=== PATIENT | female | born 1945 | race Caucasian/White ===

== ENCOUNTER 2023-11-10 05:49 | Day surgery (SDC) | payer MEDICARE, OTHER, SELFPAY ==
[2023-11-10] VITALS (9 sets, daily range): BP systolic 123–159; BP diastolic 55–80; PULSE 61–93; RESP 14–18; TEMP 36.1–36.6; O2SAT 92–97; BMI 22.8
--- NOTE | 2023-11-10 | FORE_PTH ---
PATIENT: CHAVO FREEMAN LOC: [facility] [place] U#:[id number] AGE/SX: 78/F ROOM: RE11/10/[address]: Dr. Janki Soliman MD : 1945 BED: DIS: 11/10/2023 SPEC #: [id number] RECD: 11/10/23 12:46 STATUS: AHILEE MALENA #: [id number] ADAIR: 11/10/23 00:[address]: Janki Soliman DEPT: SURGICAL PATHOLOGY RECD BY: Maicol Aguilera ENTERED: 11/10/23 12:46 SP TYPE: FOREIGN B OTHR DR: Dr. Jeny Hutchinson, DO Tissues: FOREIGN BODY Procedures: Surgery Specimen Level I HEADER OPERATION: Left breast silicone implant removal and capsulectomy PRE-OP DIAGNOSIS: Ruptured left breast implant, breast implant capsular contracture TISSUE SUBMITTED: Left breast implant capsule with tissue MICROSCOPIC DIAGNOSIS Left breast implant capsule, excision: Fibrosis, mild chronic inflammation and benign histiocytic reaction to non-polarizable material. /mr 11/13/23 MICROSCOPIC DESCRIPTION Slides are reviewed. GROSS DESCRIPTION Received in fixative is one container labeled with the patient's name and designated Left breast implant capsule and tissue. The specimen consists of a previously ruptured silicone implant measuring 14.0 x 10.0 x 2.5cm. Multiple pieces of soft tissue are noted measuring in aggregate 10.0 x 10.0x 0.2cm. No inscription are noted on the implant. Utility Lineman sections from soft tissue are submitted in one cassette. / 11/10/23 TC:3 CPT: 13252
[2023-11-10] MEDS: Lactated Ringers 1,000 ML 15 ML IV (06:44)
--- NOTE | 2023-11-10 07:24 | PCM.HP.BLA ---
History and Physical Date of Admission: 11/10/23 The patient is examined and there are no changes to the H&P dated 10/13/23. Pt with ruptured left breast silicone implant. She presents for removal ruptured silicone implant and capsulectomy. Informed consent was obtained. Assessment & Plan Assessment/Plan (1) Ruptured left breast implant: (2) Breast implant capsular contracture: PLAN: Plan For removal left silicone implant and capsulectomy.
[2023-11-10] MEDS: Clindamycin 900 MG/50 ML BAG 75 MG IV (07:28)
[2023-11-10] MEDS: Gentamicin 80 MG/2 ML Vial (07:58)
[2023-11-10] MEDS: Bupivacaine 0.25% 30 ML Vial (09:53)
--- NOTE | 2023-11-10 10:07 | DCINST_ITS ---
Discharge Instructions Dressing / Incision Additional Dressing/Incision Instructions:: Keep your back elevated (recliner position). Empty the ROBYN drain 2-3 times a day and record the quantity. Bring this spreadsheet back to your appointments with Dr. Soliman. Follow Up Care Please Follow Up With: Janki Soliman MD When: In 1 week Test Results: Test results from this visit will be discussed in further detail at your follow- up appointment, if applicable. Discharge Plan Admission Attending Provider: Janki Soliman Primary Care Provider: Jeny Hutchinson Instructions Additional Instructions / Restrictions: Provide patient with and incentive spirometer prior to discharge. Teach patient and to empty and record ROBYN drainage. Discharge Orders/Prescriptions Prescriptions: No Action acetaminophen [Tylenol] 325 mg capsule 325 mg PO ONCE PRN (Reason: pain) albuterol sulfate 90 mcg/actuation HFA aerosol inhaler 2 puff inhalation Q6H PRN (Reason: shortness of breath or wheezing) ipratropium bromide 21 mcg (0.03 %) spray,non-aerosol 2 spray intranasal BID Rx Instructions: administer into each nostril calcium carbonate [Calcium 600] 600 mg calcium (1,500 mg) tablet 2,000 mg PO DAILY sulfamethoxazole-trimethoprim [Bactrim DS] 800-160 mg tablet 1 tab PO BID Qty: 14 0RF tramadol 50 mg tablet 50 mg PO Q8H PRN (Reason: pain) Qty: 7 0RF Referrals / Follow Up: Jeny Hutchinson DO [Primary Care Provider] - Disposition Disposition (needs filled in before D/C Order can be placed): Home, Self Care
--- NOTE | 2023-11-10 10:15 | PCM.OPRPT ---
Problems Associated Problem List Diagnoses (1) Breast pain, left: (2) Breast implant capsular contracture: (3) Ruptured left breast implant: Report of Operation Date of Procedure: 11/10/23 Pre-Operative Diagnosis: Imaging proven left breast implant rupture; left breast capsular contraction; history of left breast reconstruction following mastectomy for cancer Post-Operative Diagnosis: Same Surgery/Procedure Performed:: Left breast silicone implant removal and capsulectomy Surgeon: Janki Soliman furniture repair technician: JULIANE LUISwebbing supervisor Type of Anesthesia: General Specimen's removed: Ruptured silicone implant and capsule Drains: ROBYN drain Estimated Blood Loss (mL): 20 cc Description of Procedure: The patient presents for removal of a ruptured silicone implant that was placed in approximately 1980 for reconstruction following mastectomy for cancer. She complains of pain and had an imaging study of the chest which demonstrated the rupture. She presents for removal of the silicone implant and capsulectomy without replacement per her request. The procedure been thoroughly reviewed with her and her . Adequate time was given to answer all questions. Informed consent was obtained. The patient is brought to the operating room and placed under general anesthesia in the supine position. Care is taken to pad all pressure points, insert a Erazo catheter, a warming blanket, and sequential compression stockings. The chest is prepped and draped in the usual sterile fashion. We initially began with excising an adherent portion of the previous scar. This is taken down through the subcutaneous tissue until the pectoralis major muscle is encountered. Dissection then continues in a deep subcutaneous plane discussed preserve the muscle and identify the capsule around the ruptured implant. The capsule was identified and careful dissection over the dome of the implant is performed leaving the capsule intact. When the anterior surface of the capsule was completely exposed, we began taking the capsule off the chest wall. The capsule is firmly adherent to the bone and intercostal muscle fascia and therefore portion of the capsule is left intact in this area. The ruptured silicone implant and removed capsule is passed off the operative field to be sent to pathology. The wound is irrigated with antibiotic solution and gauze used to wipe out any grossly present silicone. Meticulous hemostasis is then performed. Gretchen is sprayed within the capsule to facilitate further hemostasis. A ROBYN drain is laid in the inferior aspect of the pocket and brought out through the lateral aspect of the incision. This is anchored in place with a nylon suture. The incision is then closed in layers I initially tacked in the incision together with [id number] Vicryl sutures. Further closure is accomplished with a 3 layer closure using 3-0 STRATAFIX suture. 1/4% plain Marcaine is injected within the pocket as well as in the skin around the incision. Xeroform gauze is placed on the incision along with fluff gauze and she is placed in a surgery bra. She tolerated the procedure well and was taken to the recovery area in an awakening in stable condition. Needle and sponge counts are correct. Complications None Admit VTE Documentation VTE Mechan Device Prophylaxis: SCD's
== END 2023-11-10 13:23 | disposition home or self-care (01) ==
LOC: SDC 05:49 → AC 05:50
PROVIDERS: PCP Internal Medicine; Referring Provider Plastic Surgery; Visit Provider Plastic Surgery
PROC: (CPT 19371; principal; 2023-11-10 07:15)
DX: T85.44XA Capsular contracture of breast implant, initial encounter (principal); J44.9 Chronic obstructive pulmonary disease, unspecified; N64.4 Mastodynia; Z79.51 Long term (current) use of inhaled steroids; X58.XXXA Exposure to other specified factors, initial encounter; Z86.73 Personal history of transient ischemic attack (TIA), and cerebral infarction without residual deficits
CPT/HCPCS: 19370; 00402; 88300; J7120; C1729; J2405

== ENCOUNTER 2024-04-19 05:41 | Day surgery (SDC) | payer MEDICARE, OTHER, SELFPAY ==
[2024-04-19] VITALS (10 sets, daily range): BP systolic 128–171; BP diastolic 59–98; PULSE 60–81; RESP 16–18; TEMP 35.9–36.3; O2SAT 93–99; BMI 23.2
[2024-04-19] MEDS: Lactated Ringers 1,000 ML 15 ML IV (06:25)
--- NOTE | 2024-04-19 06:38 | PRE.ANES_ITS ---
ASA Classification* ASA Classification ASA Classification: 2 Assessment & Plan Anesthesia* Anesthesia Assessment Anesthesia Assessment: Discussed sedation and/or anesthesia options, risks, benefits, and alternatives with patient/parents/legal guardian/POA. Questions invited. The patient/parents/legal guardian/POA seems to understand and agrees to proceed with anesthesia plan. Reviewed the physical assessment, medical history, allergy history and patient home medications list prior to surgery/procedure/anesthetic and documented any changes. Performed airway and anesthesia risk assessments. Anesthesia Type Anesthesia Type: General Anesthesia Focused Assessment* Temperature: 97.2 F Pulse Rate: 60 Blood Pressure: 171/75 Respiratory Rate: 18 Pulse Ox: 97 Airway Assessment Mouth opens: >3 cm Mallampati Score: II Focused Labs Anesthesia Preop lab: CBC CHEMISTRY COAG Pre-Assessment Diagnosis/Proposed Procedure Planned Operative Procedure(s): (B) Bilateral upper blepharoplasty Anesthesia History Anesthesia History - forging machine hand: Anesthesia History - forging machine hand Hx Hospitalization Yes: [facility] FOR BAD FALL 04/02/24 11:20 Any Problems With Anesthesia No: STATES SLOW TO WAKE UP 04/02/24 11:20 Cholinesterase deficiency No 04/02/24 11:20 You/Your Family Experience No 04/02/24 11:20 fever (hyperthermia) with Relationship Recent Exposure to Contagious No 04/19/24 06:14 Disease Does patient have nerve No 04/02/24 11:20 stimulator Patient instructed to have device shut off --Does patient have Pacemaker No 04/19/24 06:14 or ICD? When Was Last Pacemaker Check QUESTION #4 FULL TEXT: You/Your Family Experience fever (hyperthermia) with Anesthesia Last Oral Intake Last Oral intake: Last Oral Intake NPO since 04:30 04/19/24 06:14 Meds taken in AM with sips of Yes 04/19/24 06:14 water? Meds patient instructed to losartan 04/19/24 06:14 take am of surgery PONV PONV - forging machine hand: PONV - forging machine hand Female Yes 04/02/24 11:20 HX of Motion Sickness No 04/02/24 11:20 HX of N/V After Surgery No 04/02/24 11:20 Non-Smoker Yes 04/02/24 11:20 Duration of Surgery greater Yes 04/02/24 11:20 than 60 minutes Number of Risk Factors 3 04/02/24 11:20 PONV Score Moderate Risk 04/02/24 11:20 Height & Weight Height & Weight: Anesthesia: Height & Weight Height 5 ft 9 in 04/19/24 06:14 Weight: 71.3 kg 04/19/24 06:14 Body Mass Index (BMI) 23.2 04/19/24 06:14 Respiratory Assessment Respiratory Assessment - forging machine hand: Respiratory Tract Infection Hx - forging machine hand Hx Respiratory Tract Infection No 04/02/24 11:20 STOP Sleep Apnea STOP Sleep Apnea - forging machine hand: STOP Sleep Apnea - forging machine hand Hx Hypertension No: 'HIGH WHEN GOES 04/02/24 11:20 TO [place] Hx Sleep Apnea No 04/02/24 11:20 CPAP BIPAP Do you snore loudly (louder No 04/02/24 11:20 than talking or can be heard Do you often feel tired/ No 04/02/24 11:20 fatigued/ sleepy during daytime? Has anyone observed you stop No 04/02/24 11:20 breathing during sleep? STOP Results Negative 04/02/24 11:20 QUESTION #5 FULL TEXT : Do you snore loudly (louder than talking or can be heard through closed doors)? Tobacco Use History Tobacco Use History - forging machine hand: Tobacco Use History - forging machine hand Tobacco Use Smoking Status Former smoker 04/02/24 11:20 Hx Tobacco Use No 04/02/24 11:20 Years Smoking Packs Smoked per Day Smoking Cessation Date was No - quit smoking greater 04/02/24 11:20 within the last 15 years than 15 years ago Hx Smoking Cessation Date Hx Smoking Cessation Counseling Hematologic Medial History Hematologic Hx - forging machine hand: Hematologic Medical Hx - director of product management Hx of Blood Transfusion Yes 04/02/24 11:20 Hx of Transfusion in last 3 No 04/02/24 11:20 Months Date of Last Transfusion (if within last 3 months) Ever experience any problems No 04/02/24 11:20 with transfusion(s)? Specify any problems Hx of Preganancy in last 3 No 04/02/24 11:20 Months Nurse Filling Out Transfusion VCHRISTIN 04/02/24 11:20 & Questions: Date: 04/02/24 04/02/24 11:20 Time: 11:04/02/24 11:20 Patient unable to answer at this time (ie. confused, unrespo /Reproduction History /Reproductive History - forging machine hand: /Reproductive Hx- forging machine hand Hx Now Gestational Age (in weeks): EDC: Hx Hx Para Hx Section SAB No 04/02/24 11:20 Active Medications Active Medications: Current Medications Generic Name Dose Route Start Last Admin Trade Name Freq PRN Reason Stop Dose Admin Clindamycin Phosphate 900 mg in 50 mls @ 75 mls/hr 04/19/24 07:30 Cleocin IV 04/19/24 08:09 PREOP ONE Lactated Ringer's 1,000 mls @ 15 mls/hr 04/19/24 06:00 04/19/24 06:25 IV 15 mls/hr .Q48H SOURAV Administration PFSH Medical History Hypertension Spinal stenosis Wears dentures Wears hearing aid Wears glasses TIA (transient ischemic attack) History of diverticulitis Leg cramps Neuropathy Brain bleed Vision problems Osteoporosis Osteopenia Osteoarthritis Hives Hearing problem of both ears COPD (chronic obstructive pulmonary disease) BRCA gene positive H/O urinary tract infection Back problem Arthritis Seasonal allergies Home Medications ?Medication ?Instructions ?Recorded ?Last Taken ?Type acetaminophen 325 mg capsule 325 mg PO ONCE PRN pain 10/10/23 Unknown History (Tylenol) albuterol sulfate 90 mcg/actuation 2 puff inhalation Q6H PRN 10/10/23 Unknown History aerosol inhaler shortness of breath or wheezing ipratropium bromide 21 mcg (0.03 2 spray intranasal BID 10/10/23 Unknown History %) nasal spray sulfamethoxazole 800 1 tab PO BID #14 tabs 10/24/23 Unknown Rx mg-trimethoprim 160 mg tablet (Bactrim DS) tramadol 50 mg tablet 50 mg PO Q8H PRN pain #7 tabs 10/24/23 Unknown Rx gabapentin 100 mg capsule 100 mg PO BID 03/19/24 Unknown History erythromycin 5 mg/gram (0.5 %) eye 1 applic ophthalmic (eye) DAILY 04/02/24 Unknown Rx ointment #3.5 grams tizanidine 2 mg tablet 2 mg PO PRN PRN muscle spasm 04/02/24 Unknown History losartan 25 mg tablet 25 mg PO DAILY 04/05/24 Unknown History losartan 25 mg tablet 50 mg PO DAILY 04/19/24 Unknown History losartan 50 mg tablet 50 mg PO DAILY 04/19/24 04/19/24 History Allergy/AdvReac Type Severity Reaction Status Date / Time bacitracin (From Neosporin Allergy Severe Rash Verified 04/19/24 06:09 ([id number])) latex Allergy Severe Rash Verified 04/19/24 06:09 neomycin (From Neosporin Allergy Severe Rash Verified 04/19/24 06:09 ([id number])) polymyxin B (From Neosporin Allergy Severe Rash Verified 04/19/24 06:09 ([id number])) doxycycline Allergy Mild Hives Verified 04/19/24 06:09 Penicillins Allergy Mild Hives Verified 04/19/24 06:09 Seasonal Allergies: Uncoded Allergy Mild Other Verified 04/19/24 06:09 (environmental) Family History Sister Arthritis Breast cancer Cancer ovarian cancer Hypertension Osteoporosis Heart disease Mother Arthritis Cancer bladder Father Arthritis Heart disease Cancer lung cancer Grandmother Breast cancer Heart disease Hypertension Brother Hypertension Heart disease Surgical History Hx of surgical procedure Hx of surgical procedure Hx of salpingo-oophorectomy, bilateral H/O total knee replacement H/O breast reconstruction H/O left mastectomy H/O lumpectomy Social History Smoking Status: Former smoker how long ago did patient quit smoking: quit 2006 alcohol intake: current details: social substance use type: does not use additional social history: pt denies vaping, pt denies marijuana use, pt denies edibles, pt takes aspirin as needed, pt takes ibuprofen as needed. Review of Systems (Anesthesia) ROS Narrative System reviewed and no additional complaints, except as documented.
[2024-04-19] MEDS: EPINEPHrine Nasal 0.1% 30 ML Bottle OPERA.SITE (07:15)
--- NOTE | 2024-04-19 07:26 | PCM.HP.BLA ---
History and Physical Date of Admission: 04/19/24 The patient is examined and there are no changes to the H&P dated 04/12/24. Pt with upper eyelid dermatochalasis obstructing visual tejada. Informed consent obtained for upper blepharoplasty. Assessment & Plan Assessment/Plan (1) Visual field defect of both eyes: (2) Dermatochalasis of both upper eyelids: PLAN: Plan Pt for upper blepharoplasty.
[2024-04-19] MEDS: Clindamycin 900 MG/50 ML BAG 75 MG IV (07:38)
[2024-04-19] MEDS: Povidone Iodine 30 ML Opthalmic Sol 1 DRP (07:50)
[2024-04-19] MEDS: Carboxymethylcellulose sodium gel dropperette OPHTHALMIC (08:10)
[2024-04-19] MEDS: Tetracaine 0.5% Ophthalmic Bottle OPHTHALMIC (08:33)
[2024-04-19] MEDS: Lidocaine 1% /Epi 1:100 (20ml) 20 ML Vial (08:36)
[2024-04-19] MEDS: Erythromycin Base 1 OPTH.TUBE 1 APPLIC OPHTHALMIC (09:22)
--- NOTE | 2024-04-19 09:22 | EX.PCM.DISCH ---
Discharge Instructions Dressing / Incision Additional Dressing/Incision Instructions:: Follow the instructions given in the office. Maintain your back elevated (recliner position). Take the oral antibiotic as directed and apply the ointment daily. Follow Up Care Please Follow Up With: Janki Soliman MD When: 1 week Test Results: Test results from this visit will be discussed in further detail at your follow-up appointment, if applicable. Discharge Plan Admission Attending Provider: Janki Soliman Primary Care Provider: Jeny Hutchinson Instructions Print Language: Kiswahili Discharge Orders/Prescriptions Prescriptions: No Action acetaminophen [Tylenol] 325 mg capsule 325 mg PO ONCE PRN (Reason: pain) albuterol sulfate 90 mcg/actuation HFA aerosol inhaler 2 puff inhalation Q6H PRN (Reason: shortness of breath or wheezing) ipratropium bromide 21 mcg (0.03 %) spray,non-aerosol 2 spray intranasal BID Rx Instructions: administer into each nostril sulfamethoxazole-trimethoprim [Bactrim DS] 800-160 mg tablet 1 tab PO BID Qty: 14 0RF Patient Comments: PRE AND POST-OP tramadol 50 mg tablet 50 mg PO Q8H PRN (Reason: pain) Qty: 7 0RF gabapentin 100 mg capsule 100 mg PO BID erythromycin 5 mg/gram (0.5 %) ointment 1 applic ophthalmic (eye) DAILY Qty: 3.5 0RF Rx Instructions: Apply in the eyes at nighttime and on the incision 1 x a day tizanidine 2 mg tablet 2 mg PO PRN PRN (Reason: muscle spasm) losartan 25 mg tablet 25 mg PO DAILY losartan 25 mg tablet 50 mg PO DAILY losartan 50 mg tablet 50 mg PO DAILY Referrals / Follow Up: Jeny Hutchinson DO [Primary Care Provider] - Disposition Disposition (needs filled in before D/C Order can be placed): Home, Self Care
--- NOTE | 2024-04-19 09:23 | PCM.OPRPT ---
Problems Associated Problem List Diagnoses (1) Visual field defect of both eyes: (2) Dermatochalasis of both upper eyelids: Report of Operation Date of Procedure: 04/19/24 Pre-Operative Diagnosis: Bilateral upper eyelid dermatochalasis and visual field defect Post-Operative Diagnosis: Same Surgery/Procedure Performed:: Bilateral upper blepharoplasty Surgeon: Janki Soliman dental claims processor: Lb Lilly Estimated Blood Loss (mL): Minimal Description of Procedure: The patient presents with visual field defect of the upper and lateral tejada. She presents for bilateral upper blepharoplasty for dermatochalasis. She is marked in the preop holding area prior to surgery. Informed consent was obtained. The patient is brought to the operating room and placed under general anesthesia in the supine position. Care is taken to pad all pressure points, apply a warming blanket, and sequential compression stockings. The face is prepped and draped in the usual sterile fashion. After instilling tetracaine drops, lubricated corneal moreno are placed. We initially began with injecting 1% Xylocaine with epinephrine along the premarked incisions. The incisions are then incised after allowing an adequate amount of time for the medication to take effect. The skin is then removed as a single layer. Meticulous hemostasis is controlled with bipolar cautery. A strip of orbicularis oculi is then also removed. Again meticulous hemostasis is obtained. The incisions then tacked together with fast-absorbing gut suture. Cool compresses are placed on the eye and we directed our attention to the opposite side where the identical procedure was performed. Following this, a 5-0 Prolene sutures used to approximate skin edges in a subcuticular fashion. The sutures anchored at the bahai and the glabella with Mastisol and Steri-Strips. The corneal moreno are removed. Cool compresses are applied to the eyes throughout the procedure. She tolerated the procedure well was taken to the recovery area in an awake and stable condition. Needle and sponge counts are correct. Complications None Admit VTE Documentation VTE Mechan Device Prophylaxis: SCD's
--- NOTE | 2024-04-19 09:34 | PCM.POST.ANE ---
Anesthesia: Postop Eval I Current Vital Signs Temperature: 96.7 F Pulse Rate: 80 Blood Pressure: 136/62 Respiratory Rate: 16 Pulse Ox: 99 Oxygen Delivery Method: Room Air Assessment Airway patent: Yes Spontaneous unlabored respirations: Yes Mental status: Awake and Calm nausea: No Vomiting: No Anesthesia Complication: No Fluid Hydration Crystalloid volume administer (ml): 700 Total IV fluid infused: 700 Progress Note Anesthesia document: Postop Eval 1 completed: Yes
--- NOTE | 2024-04-19 09:48 | PCM.POSTANE2 ---
Anesthesia Postop Eval I Sum Postop Eval Completion status Anesthesia document: Postop Eval 1 completed: Yes Anesthesia Postop Eval I Summary Anesthesia Postop Eval I Summary: Anesthesia Postop Eval I: Assessment Summary Airway patent Yes 04/19/24 09:36 Spontaneous unlabored Yes 04/19/24 09:36 respirations Mental status Awake,Calm 04/19/24 09:36 nausea No 04/19/24 09:36 Vomiting No 04/19/24 09:36 Anesthesia Postop Eval I: Fluid Summary Crystalloid volume administer 700 04/19/24 09:36 (ml) Colloids volume administered ( ml) Blood Product volume administered (ml) Total IV fluid infused 04/19/24 09:36 Anesthesia Postop Eval I: Summary Notes Anesthesia Complication No 04/19/24 09:36 Anesthesia Complication Comment: Post-operative progress note Anesthesia: Postop Eval II Evaluation Mental status: Awake Pain Level: 0 nausea: No Vomiting: No
== END 2024-04-19 11:10 | disposition home or self-care (01) ==
LOC: SDC 05:41 → AC 05:43
PROVIDERS: PCP Internal Medicine; Referring Provider Plastic Surgery; Visit Provider Plastic Surgery
PROC: (CPT 15823; principal; 2024-04-19 07:20)
DX: H02.831 Dermatochalasis of right upper eyelid (principal); J44.9 Chronic obstructive pulmonary disease, unspecified; H02.834 Dermatochalasis of left upper eyelid; H53.40 Unspecified visual field defects; I10 Essential (primary) hypertension; G62.9 Polyneuropathy, unspecified; M19.90 Unspecified osteoarthritis, unspecified site; M81.0 Age-related osteoporosis without current pathological fracture; Z88.1 Allergy status to other antibiotic agents; Z88.0 Allergy status to penicillin; Z85.3 Personal history of malignant neoplasm of breast; Z90.12 Acquired absence of left breast and nipple; Z86.73 Personal history of transient ischemic attack (TIA), and cerebral infarction without residual deficits; Z79.899 Other long term (current) drug therapy; Z87.891 Personal history of nicotine dependence; Z91.040 Latex allergy status; Z96.659 Presence of unspecified artificial knee joint
CPT/HCPCS: 15823; 00103; J7120; J2405